=== PATIENT | female | born 1980 | race Hispanic/Latino ===

== ENCOUNTER 2016-10-06 00:26 | Emergency (ER) | payer SELFPAY ==
[~2016-10-06] VITALS: Ht 162.6 cm; Wt 56.8 kg
[2016-10-06 00:35] VITALS: BP 113/70; RESP 18; O2SAT 100
--- NOTE | 2016-10-06 00:42 | ED.REPORT ---
HPI-Ear Pain/Problem/FB Date of Service Oct 06, 2016 ED Provider: Dr. Woods 36 y/o female with no pertinent hx presents to the ED complaining of right ear pain for the last 2 days. She also complains of fever. She denies occipital pain and . There are no other complaints at this time. 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) Arrived By: Walk-in Onset Occurred: 2 days ago Symptom Duration: Since onset Location: : Inner ear Quality: Painful Severity: Current: Moderate Severity: Maximum: Moderate Recent Healthcare: No recent doctor visit Similar Sx Previous: No Past Medical History Past Medical History none reported Past Surgical History none reported Smoking History Never Smoker Social History Alcohol Use: Denies alcohol use Other Social History: Good social support Ambulatory Status Independent Review of Systems Constitutional: Reports: Fever Ears / Nose / Throat: Reports: Earache right Complete sys rev & neg: except as marked. Physical Exam Initial Vital Signs Vital Signs (First) Date Time Temp Pulse Resp B/P Pulse Ox O2 Delivery O2 Flow Rate FiO2 10/06/16 00:35 37.1 68 18 113/70 100 Room Air Initial VS: Reviewed Head / Eyes: Atraumatic, Normocephalic Neck: Supple, Non-tender, Full range of motion Respiratory: Breath sounds normal, Clear to auscultation, No respiratory distress Cardiovascular: Regular rate & rhythm, Heart sounds normal, Intact distal pulses Abdomen / GI: Soft, Non-tender Extremities: Vascular intact, Neuro intact, No swelling, No tenderness Skin: Warm, Dry, No cyanosis General/Constitutional: Awake, Alert, Well appearing, Cooperative ENT: Atraumatic, Airway patent, Mucous membranes moist, Pharynx NL, No trismus Right TM dull and erythematous. Skin: Atraumatic, Color NL, No rash, Warm, Dry, Intact Neurologic: Oriented X3, Speech NL, No motor deficits, No sensory deficits, CN II - XII intact Re-Eval/Medical Decision Source of Hx: Old records Re-Evaluation/Progress : Time of Eval: 00:50 Re-Evaluation/Progress Note: Rechecked pt. Discussed diagnosis and plan to discharge. Pt understands and agrees with the plan. F/U instructions and RTER warning given. All questions addressed. Counseled Regarding: Diagnosis, Lab results, Need for follow-up, When/why to return to ED Discharge & Departure Primary Impression: Otitis media Otitis media type: suppurative Laterality: right Chronicity: acute Recurrence: not specified as recurrent Spontaneous tympanic membrane rupture: without spontaneous rupture Qualified Code: H66.001 - Acute suppurative otitis media without spontaneous rupture of ear drum, right ear Disposition: Home Discharge Condition All VS Reviewed: Yes Condition: Stable Patient Instructions: Otitis Media (ED) Additional Instructions: Thank you for entrusting us with your care today. Take the antibiotic, Augmentin twice daily for ten days. Please finish the entire course of the antibiotic. Take 1-2 [place] every 6 hours as needed for pain. Do not drive tonight. Do not drive or drink alcohol or consume acetaminophen while taking the [place]. Call your primary care provider tomorrow to schedule an appointment for further evaluation. If you develop any new or worsening pain or drainage from the ears, stiff neck or severe headache, come back to the emergency department. It was very nice meeting you. Kai por confiarnos batista cuidado hoy. [place] el antibitico Augmentin dos veces al da matthias tommie cuellar. Por favor termine todo el curso del antibitico. [place] 1-2 [place] cada 6 horas segn sea necesario para el dolor. No manejes esta noche. No conduzca ni alexander alcohol ni consuma acetaminofn mientras lakshmi el [place]. Llame a batista proveedor de atencin primaria maana para programar izabela meagan para izabela evaluacin posterior. Si desarrolla dolor o drenaje nuevo o empeoramiento de los odos, rigidez del sue o dolor de regine marycarmen, vuelva al departamento de emergencias. Fue muy agradable conocerte. Referrals: [facility] Scribe Attestation Portions of this note were transcribed by Inessa Boogie. Dangelo,, personally performed the history, physical exam and medical decision-making;I reviewed and confirmed the accuracy of the information in the transcribed note. Signed by Keyla Reno. 10/06/16 01:00 Candelario Woods DO Oct 06, 2016 00:42 Inessa Boogie Oct 06, 2016 00:53
[2016-10-06] MEDS ORDERED: Amoxicillin-Clav 875-125 mg Tablet PO ONE (00:50)
[2016-10-06] MEDS ORDERED: _HYDROcodone/APAP 5-325 mg Tablet PO PRN (00:50)
[2016-10-06 01:18] VITALS: BP 113/70; PULSE 68; RESP 18; O2SAT 100
== END 2016-10-06 01:16 | disposition home or self-care (01) ==
LOC: SED 00:26
DX: H66.001 Acute suppurative otitis media without spontaneous rupture of ear drum, right ear (principal); R50.9 Fever, unspecified

== ENCOUNTER 2016-11-07 07:25 | Emergency (ER) | payer OTHER ==
[~2016-11-07] VITALS: Ht 154.9 cm; Wt 60.0 kg
[2016-11-07 07:30] VITALS: BP 129/76; PULSE 77; RESP 20; O2SAT 100
--- NOTE | 2016-11-07 07:34 | ED.REPORT ---
HPI-Dyspnea / Wheezing Date of Service Nov 07, 2016 ED Provider: Kosta Caceres DO Pt is an otherwise healthy 36 year old female who presents to the ED complaining of cold symptoms 3 days and chest "tightness" that began today. She describes this tightness as a worsening feeling of her chest "closing," similar to when she experiences cold symptoms. Pt c/o associated SOB, stridor, sore throat, back pain, bilateral earache, mild cough, subjective fever that is worse at night, decreased appetite and decreased fluid intake. She also admits to recent weight loss and abdominal pain for two months. The pt has not taken any medications to treat her symptoms. She denies a history of asthma or any known sick contacts. The pt was seen in the ED on 10/06/2016 for similar symptoms and prescribed a course of Augmentin for her diagnosis of otitis externa, which she finished two weeks ago. Her symptoms have worsened since, and she is now experiencing stridor. The pt began her menstrual cycle yesterday. Nursing Notes Stated Complaint: FEVER,CONGESTION Chief Complaint: Respiratory Distress Nursing Notes Reviewed: Yes Allergies: Coded Allergies: No Known Allergies (Unverified , 10/06/16) Scheduled Amoxicillin (Amoxicillin) 500 Mg Capsule 2 TAB PO TID Dexamethasone (Dexamethasone) 4 Mg Tablet 2 TAB PO DAILY General Time Seen by MD: 07:33 Chief Complaint Other (Chest tightness) Hx Obtained From: Patient Arrived By: Walk-in Sudden in Onset?: No Onset Occurred: 3 days ago Symptom Duration: Since onset Recent Healthcare: No recent hospitalization, Recent doctor visit Similar Sx Previous: Yes Past Medical History Past Medical History none reported Past Surgical History none reported Smoking History Never Smoker Social History Alcohol Use: Denies alcohol use Other Social History: Good social support Ambulatory Status Independent Review of Systems Review of Systems Note: decreased appetite and fluid intake stridor Constitutional: Reports: Fever (mild, worsened at night), Recent wt loss, Denies: Chills Ears / Nose / Throat: Reports: Earache bilateral, Sore throat Respiratory: Reports: Non-productive cough (mild), Shortness of breath Cardiovascular: Reports: Chest pain (Tightness) Musculoskeletal: Reports: Back pain Skin: Denies Rash Complete sys rev & neg: except as marked. Physical Exam Initial Vital Signs Vital Signs (First) Date Time Temp Pulse Resp B/P Pulse Ox O2 Delivery O2 Flow Rate FiO2 8/26/17 07:30 36.0 77 20 129/76 100 11/07/16 10:35 Room Air Initial VS: Reviewed General/Constitutional: Awake, Alert, No acute distress Neck: Atraumatic, Supple, Full range of motion No lympadenopathy Respiratory / Chest: Atraumatic Slightly decreased air movement Involuntary end expiratory stridor which sounds almost like grunting Cardiovascular: Heart rate NL, Regular rhythm, Heart sounds NL, No murmurs ENT: Atraumatic, Mucous membranes moist posterior oropharynx mildly erythematous without exudates tonsils +1 bilaterally uvula midline, no deviation Abdomen: Atraumatic, No guarding, No rebound, No distention Mild epigastric tenderness to palpation, baseline for two months Back: Atraumatic, Full range of motion Lower Extremity / Pelvis / MS: Atraumatic, Full range of motion Skin: Atraumatic, Color NL, No rash, Warm, Dry Neurologic: Oriented X3, Speech NL, No motor deficits, No sensory deficits Head / Eyes: Atraumatic, Normocephalic, PERRL, EOMI Upper Extremity / MS: Atraumatic, Full range of motion Psychiatric: Affect NL, Mood NL Interpretation & Diagnostics Interpretation & Diagnostics: Soft tissue neck CT: With IV contrast IMPRESSION: 1. There is edema in vocal cord. Recommend direct visualization if clinically indicated. 2. Tonsillar enlargement. 3. No cervical lymphadenopathy. Dictated by: Lora Dela Cruz M.D. on 11/07/2016 at 10:32 Approved by: Lora Dela Cruz M.D. on 11/07/2016 at 10:44 Lab Results Interpretation Result Diagram: 11/07/16 0800 11/07/16 0800 Test 11/07/16 08:00 White Blood Count 12.2th/mm3 (3.8-10.1) Red Blood Count 4.23mil/mm3 (3.90-5.20) Hemoglobin 13.5g/dL (12.0-15.6) Hematocrit 38.5% (35.0-46.0) Mean Corpuscular Volume 91.0fL (81-100) Mean Corpuscular Hemoglobin 31.9pg (27.0-35.0) Mean Corpuscular Hemoglobin Concent 35.1% (32.0-37.0) Red Cell Distribution Width 13.6% (12.3-15.4) Platelet Count 210bil/L (150-400) Neutrophils (%) (Auto) 83.7% (40-74) Lymphocytes (%) (Auto) 11.6% (14-46) Monocytes (%) (Auto) 4.4% (4-12) Eosinophils (%) (Auto) 0.1% (0-5) Basophils (%) (Auto) 0.1% (0-3) D-Dimer < 0.5mg/L FEU (<0.50) Hold Urine Received (Received) Sodium Level 141mEq/L (134-144) Potassium Level 3.8mEq/L (3.5-5.2) Chloride Level 107mEq/L (97-108) Carbon Dioxide Level 21mmol/L (18-29) Blood Urea Nitrogen 13mg/dL (6-20) Creatinine 0.50mg/dL (0.57-1.00) Estimat Glomerular Filtration Rate 199mL/min (>59) Glucose Level 102mg/dL (60-99) Calcium Level 8.7mg/dL (8.5-10.1) Magnesium Level 1.9mg/dL (1.6-2.6) Total Bilirubin 0.7mg/dL (0.0-1.2) Aspartate Amino Transf (AST/SGOT) 18U/L (0-50) Alanine Aminotransferase (ALT/SGPT) 18U/L (0-32) Alkaline Phosphatase 74U/L (25-150) Total Protein 7.3g/dL (6.4-8.4) Albumin 4.1g/dL (3.4-5.0) Procalcitonin 0.02ng/mL (0.00-0.08) X-Ray Chest Interpretation Chest Xray Interpretation: IMPRESSION: No acute cardiopulmonary disease. Dictated by: Lora Dela Cruz M.D. on 11/07/2016 at 9:25 Approved by: Lora Dela Cruz M.D. on 11/07/2016 at 9:26 Interpretation / Wet Read by: Interpret - Radiologist Re-Eval/Medical Decision Med Decision/Clinical Course 36-year-old female presenting with cold symptoms followed by chest tightness and difficulty breathing today. She has some stridulous sounds that were concerning for upper airway obstruction so a CT of the neck was performed showing vocal cord edema without obstruction. She was not hypoxic and her stridor decreased after Decadron 10 mg IV was given. I discussed her care with ENT has documented below upon seeing the radiologist's recommendations. Dr. Carey felt that this was laryngitis and recommended that she receive 20 mg of Decadron total in the ER as well as 8 mg daily for 7 days and amoxicillin 1 g 3 times a day for 10 days. Patient was given Dr. Carey's contact information and she will follow-up with him next week, return if her symptoms are worsening. Patient was in agreement with the plan. I also considered other etiologies such as strep or pulmonary embolus which could cause shortness of breath but these tests returned normal and patient was reassured. She mentioned problems with weight loss and I recommended she undergo further testing with her PCP Source of Hx: Old records Re-Evaluation/Progress #1: Time of Eval: 10:07 Re-Evaluation/Progress Note: Pt rechecked and results are discussed. Re-Evaluation/Progress #2: Time of Eval: 10:59 Patient Status: Condition improved Re-Evaluation/Progress Note: Pt rechecked. Discussed all results. Informed pt of plan for discharge. Pt understands and agrees with plan. F/U instructions and RTER warnings given. All questions addressed. Consultation : Referral / Consult Name: Kosta Carey MD Call Returned at: 10:52 Automation Test Developer: Will see patient, Agrees with plan Note: Discusses pt's case with Dr. Carey, ENT. He agrees with plan for discharge and follow up with pt. Counseled Regarding: Diagnosis, Lab results, Need for follow-up, When/why to return to ED Discharge & Departure Impression: Primary Impression: Laryngitis Additional Impressions: Shortness of breath Throat pain Leukocytosis Leukocytosis type: unspecified Qualified Code: D72.829 - Elevated white blood cell count, unspecified Stridor Abnormal weight loss Disposition: Home Discharge Condition All VS Reviewed: Yes Condition: Stable Patient Instructions: Laryngitis (ED) Additional Instructions: Thank you for trusting us with your care today. Your emergency room evaluation today included an interview, physical exam, lab studies, a chest x-ray, and a CT of your neck. The CT of your neck showed some swelling around the vocal cords but no airway obstruction. You are treated with Decadron 20 mg IV and amoxicillin 1 g once. I would like you to continue the Decadron 8 mg once daily for 7 days and the amoxicillin 1 g 3 times a day for 10 days. You are white blood cell count was mildly elevated which is likely related to your throat infection. Other labs looked unremarkable. Your strep test was also negative. There are no signs of blood clot in her lungs and your chest x-ray looks normal. I discussed your symptoms with a specialist , Dr. Kosta Carey and he would like to see you in follow-up if you are not improving early next week. His contact information is below. Please follow-up with your primary care provider early next week for a reevaluation as well as to discuss your ongoing abdominal pain and weight loss. Return to the ER if your breathing gets more difficult or you develop new or worsening symptoms. Kai por confiar en vásquez cuidado hoy. La evaluacin de la ariana de emergencias incluy hoy izabela entrevista, un examen fsico, estudios de laboratorio, izabela radiografa de trax y izabela TC de vásquez sue. La TC de vásquez sue mostr algo de hinchazn alrededor de las cuerdas vocales, madhuri no obstruccin de las vas respiratorias. Usted es tratado con Decadron 20 mg IV y amoxicilina 1 g izabela vez. gustara que usted contine el Decadron 8 mg izabela vez al da matthias 7 d as y la amoxicilina 1 g 3 veces al da matthias 10 cuellar. Usted tiene un recuento de glbulos blancos ligeramente elevado que probablemente est relacionado con vásquez infeccin de garganta. Otros laboratorios no parecan tener importancia. Vásquez prueba de estreptococo tambin fue negativa. No hay signos de cogulos de benjy en moise pulmones y vásquez radiografa de trax parece normal. Discutieron moise sntomas con un especialista, el Dr. Kosta Carey y maria esther burrell en el seguimiento si no est mejorando a principios de la prxima semana. Vásquez informaci n de contacto est abajo. Por favor, [place] un seguimiento con vásquez proveedor de atencin primaria a principios de la prxima semana para izabela reevaluacin, as jonh para discutir vásquez dolor abdominal en curso y la prdida de peso. Vuelva al ER si vásquez respiracin se vuelve ms difcil o si desarrolla sntomas nuevos o que empeoran. Referrals: Kosta Carey MD [facility] Scribe Attestation Portions of this note were transcribed by Jessie Harris and Jan Cary. I, Dr. Caceres personally performed the history, physical exam and medical decision -making; I reviewed and confirmed the accuracy of the information in the transcribed note. copies to: Kosta Carey MD; [facility] Kosta Caceres DO Nov 07, 2016 07:34 Jessie Harris Nov 07, 2016 07:41 JAN CARY Nov 07, 2016 11:55
[2016-11-07] MEDS ORDERED: Dexamethasone 10 mg/mL Inj IVPUSH ONE (07:50)
[2016-11-07 08:15] LABS: BASOPHILS % (AUTO) 0.1 % (0-3); EOSINOPHILS % (AUTO) 0.1 % (0-5); MONOCYTES % (AUTO) 4.4 % (4-12); Mean Corpuscular Hemoglobin 31.9 pg (27.0-35.0); NEUTROPHILS % (AUTO) 83.7 % (40-74); Platelet Count 210 bil/L (150-400)
[2016-11-07 08:55] LABS: Magnesium 1.9 mg/dL (1.6-2.6)
--- NOTE | 2016-11-07 09:27 | DRSVH ---
PROCEDURE: X-RAY CHEST, TWO VIEWS ([id number]) INDICATIONS: sob, chest tightness TECHNIQUE: 2 views of the chest were acquired. COMPARISON: None. FINDINGS: Surgical changes and devices: None. Lungs and pleura: No pleural effusions or pneumothorax. Lungs are clear. Mediastinum: Mediastinal contours are normal. Heart size is normal. Bones and chest wall: No suspicious bony abnormalities. Soft tissues appear unremarkable. IMPRESSION: No acute cardiopulmonary disease. Dictated by: Lora Dela Cruz M.D. on 11/07/2016 at 9:25 Approved by: Lora Dela Cruz M.D. on 11/07/2016 at 9:26
[2016-11-07 10:35] VITALS: BP 104/67; PULSE 75; RESP 17; O2SAT 100
--- NOTE | 2016-11-07 10:46 | DRSVH ---
PROCEDURE: CT NECK SOFT TISSUES WITH CONTRAST ([id number]) INDICATIONS: stridor, throat pain, sob TECHNIQUE: After the administration of intravenous contrast, 3.0 mm axial sections acquired from the sella to th e aortic arch. Additional oblique axial 3.0 mm sections acquired through the pharynx. 3 mm thick co diony reformats were generated. For radiation dose reduction, the following was used: automated exp osure control. COMPARISON: [facility], CR, XR CHEST 2VW, 11/07/2016, 8:42. FINDINGS: Image quality: Excellent. Lymph nodes: No enlarged lymph nodes seen throughout the neck. Vessels: Visualized vasculature appears patent. Neck spaces: Edema in vocal cord. Central airways is mildly narrowed but remains patent. The orophar ynx, nasopharynx, and pharynx demonstrate no mucosal lesions. The pyriform sinuses, epiglottis, vall ecula, and tongue base all appear normal. Prominent tonsils bilaterally. Extramucosal spaces appear unremarkable. Glands: The parotid and submandibular glands appear normal. Thyroid gland is normal. Miscellaneous: Visualized brain and orbits appear normal. Lung apices appear clear. Superficial so ft tissues appear normal. Bones: No suspicious bony lesions. Visualized sinuses and mastoids appear unremarkable. IMPRESSION: 1. There is edema in vocal cord. Recommend direct visualization if clinically indicated. 2. Tonsillar enlargement. 3. No cervical lymphadenopathy. Dictated by: Lora Dela Cruz M.D. on 11/07/2016 at 10:32 Approved by: Lora Dela Cruz M.D. on 11/07/2016 at 10:44
[2016-11-07] MEDS ORDERED: Dexamethasone Inj 10 MG in 0.9% Sodium Chloride-Pha MIX 50 ML IV ONE (11:00)
[2016-11-07] MEDS ORDERED: Amoxicillin 80 mg/mL 100 mL Suspension PO ONE (11:00)
[2016-11-07] MEDS ORDERED: DXM4T PO (11:11)
[2016-11-07] MEDS ORDERED: AMOX500C2 PO (11:11)
[2016-11-07] MEDS ORDERED: Amoxicillin 50 mg/mL 150 mL Suspension PO ONE (11:15)
[2016-11-07 11:34] VITALS: BP 111/76; PULSE 81; RESP 18; O2SAT 100
[2016-11-07 11:38] VITALS: BP 111/76; PULSE 81; RESP 18; O2SAT 100
== END 2016-11-07 11:39 | disposition home or self-care (01) ==
LOC: SED 07:25
DX: J04.0 Acute laryngitis (principal); D72.829 Elevated white blood cell count, unspecified; R06.02 Shortness of breath; R06.1 Stridor; R07.0 Pain in throat; R63.4 Abnormal weight loss
CPT/HCPCS: 36415; 70491; 71020; 80053; 81025; 83735; 84145; 85025; 85378; 87880; 96374; 96376; 99285; J1100; Q9967